=== PATIENT | female | born 1975 | race Caucasian/White ===

== ENCOUNTER 2020-03-17 17:43 | Inpatient (IN) | payer OTHER ==
[~2020-03-17] VITALS: Ht 165.1 cm; Wt 103.4 kg
[2020-03-17 19:32] LABS: RED BLOOD COUNT 4.4 M/UL (4.00-5.10)
[2020-03-17 19:52] LABS: BUN/CREATININE RATIO 22 (0-10)
[2020-03-18] MEDS ORDERED: ALBUTEROL2.5 MG/3 M INH (00:45)
[2020-03-18] MEDS ORDERED: PREDNISONE10 MG PO (00:46)
[2020-03-18] MEDS ORDERED: FEXOFENADINE H180 MG PO (00:49)
[2020-03-18] MEDS ORDERED: PROTONIX 40 MG40 M1 PO (00:52)
[2020-03-18] MEDS ORDERED: VITAMIN D 40400 UNIT PO (00:53)
[2020-03-18] MEDS ORDERED: VITAMIN C500 M4 PO (00:55)
[2020-03-18] MEDS ORDERED: VITAMIN E450 MG PO (00:56)
[2020-03-19 06:49] LABS: HEMOGLOBIN 12.1 gm/dl (12.3-15.3); RED BLOOD COUNT 4.08 M/UL (4.00-5.10); WHITE BLOOD COUNT 8.5 K/UL (4.5-11.0)
[2020-03-19 07:10] LABS: BUN/CREATININE RATIO 18 (0-10)
[2020-03-21 05:10] LABS: HEMOGLOBIN 11.9 gm/dl (12.3-15.3); RED BLOOD COUNT 4.22 M/UL (4.00-5.10); WHITE BLOOD COUNT 8.4 K/UL (4.5-11.0)
[2020-03-21 05:23] LABS: BUN/CREATININE RATIO 18 (0-10)
[2020-03-22 03:28] LABS: HEMOGLOBIN 11.9 gm/dl (12.3-15.3); RED BLOOD COUNT 4.07 M/UL (4.00-5.10); WHITE BLOOD COUNT 9.5 K/UL (4.5-11.0)
[2020-03-22 04:09] LABS: BUN/CREATININE RATIO 24 (0-10)
[2020-03-22] MEDS ORDERED: DECADRON6 MG PO (08:49)
[2020-03-22] MEDS ORDERED: HUMIBID LA TAB600 MG PO (08:49)
[2020-03-22] MEDS ORDERED: AUGMENTIN 875-1 EACH PO (08:49)
--- NOTE | 2020-03-22 13:59 | NUR ---
PT'S OXYGEN SATURATION IS 83% ON ROOM AIR
== END 2020-03-22 16:18 | disposition home or self-care (01) | DRG 177 ==
LOC: ER1 17:43 → CDU 23:57 → MED SURG 4 23:57
PROVIDERS: Family Medicine; ADMIT Internal Medicine
PROC: XW033E5 Introduction of Remdesivir Anti-infective into Peripheral Vein, Percutaneous Approach, New Technology Group 5 (ICD-10-PCS; principal; 2020-03-18)
PROC: 8E0ZXY6 Isolation (ICD-10-PCS; 2020-03-18)
PROC: XW13325 Transfusion of Convalescent Plasma (Nonautologous) into Peripheral Vein, Percutaneous Approach, New Technology Group 5 (ICD-10-PCS; 2020-03-18)
DX: U07.1 COVID-19 (principal); J12.89 Other viral pneumonia; J96.01 Acute respiratory failure with hypoxia; K21.9 Gastro-esophageal reflux disease without esophagitis; R19.7 Diarrhea, unspecified; R74.01 Elevation of levels of liver transaminase levels; Z99.81 Dependence on supplemental oxygen; Z88.8 Allergy status to other drugs, medicaments and biological substances; Z90.49 Acquired absence of other specified parts of digestive tract
CPT/HCPCS: 36415; 36600; 71045; 80048; 80053; 82550; 82553; 82728; 82803; 83605; 83615; 83874; 84484; 85025; 85379; 86140; 86900; 86901; 86927; 87040; 87081; 90471; 93970; 94640; 94664; 94760; 96365; 96367; 96375; 96376; 99285; J0696; J1100; J1650; J2185; J7030; Q9967

== ENCOUNTER → 2020-04-19 | Outpatient (CLI) | payer OTHER ==
[~2020-04-19] MED LIST: ALBUTEROL2.5 MG/3 M INH; AUGMENTIN 875-1 EACH PO; DECADRON6 MG PO; FEXOFENADINE H180 MG PO; HUMIBID LA TAB600 MG PO; PREDNISONE10 MG PO; PROTONIX 40 MG40 M1 PO; VITAMIN C500 M4 PO; VITAMIN D 40400 UNIT PO; VITAMIN E450 MG PO
== END ==
LOC: KOH-I 10:22
DX: J18.9 Pneumonia, unspecified organism (principal); R07.81 Pleurodynia
CPT/HCPCS: 71046

== ENCOUNTER → 2020-05-17 | Outpatient (CLI) | payer OTHER ==
[2020-05-17 11:51] LABS: HEMOGLOBIN 14.2 gm/dl (12.3-15.3); RED BLOOD COUNT 4.69 M/UL (4.00-5.10); WHITE BLOOD COUNT 5.4 K/UL (4.5-11.0)
[2020-05-17 12:37] LABS: BUN/CREATININE RATIO 18 (0-10)
== END ==
LOC: LAB 11:18
PROVIDERS: Family Medicine
DX: U07.1 COVID-19 (principal); R53.83 Other fatigue; E66.9 Obesity, unspecified
CPT/HCPCS: 36415; 80053; 80061; 82607; 84443; 85027

== ENCOUNTER → 2020-05-30 | Outpatient (CLI) | payer OTHER | LOC: EXRD 09:59 | DX: M25.522 Pain in left elbow (principal) | CPT/HCPCS: 73080 ==

== ENCOUNTER → 2021-04-02 | Outpatient (CLI) | payer OTHER | LOC: KOH-I 10:42 | DX: R05.9 Cough, unspecified (principal); J06.9 Acute upper respiratory infection, unspecified | CPT/HCPCS: 71046 ==

== ENCOUNTER → 2021-07-15 | Outpatient (CLI) | payer OTHER | LOC: US 15:49 | DX: M79.661 Pain in right lower leg (principal); R22.41 Localized swelling, mass and lump, right lower limb | CPT/HCPCS: 36415; 85379; 93971 ==

== ENCOUNTER → 2021-08-27 | Outpatient (CLI) | payer OTHER | LOC: KOH-I 08-23 09:00 | DX: S83.101A Unspecified subluxation of right knee, initial encounter (principal); M25.561 Pain in right knee; M25.461 Effusion, right knee; S83.241A Other tear of medial meniscus, current injury, right knee, initial encounter | CPT/HCPCS: 73721 ==